=== PATIENT | female | born 1950 | race Caucasian/White ===

== ENCOUNTER 2020-11-10 15:17 | Emergency (ER) | payer OTHER ==
[~2020-11-10] VITALS: Ht 162.6 cm; Wt 90.0 kg
[2020-11-10] MEDS ORDERED: IBUPROFEN 600MG TABLET PO ONE (17:00)
[2020-11-10] MEDS ORDERED: IBUP-2028 MT (17:44)
[2020-11-10 17:50] VITALS: BP 161/80
== END 2020-11-10 18:02 | disposition home or self-care (01) ==
LOC: ER 15:17
DX: S20.214A Contusion of middle front wall of thorax, initial encounter (principal); I10 Essential (primary) hypertension; V49.9XXA Car occupant (driver) (passenger) injured in unspecified traffic accident, initial encounter; Y93.89 Activity, other specified; Y92.89 Other specified places as the place of occurrence of the external cause; Y99.8 Other external cause status
CPT/HCPCS: 71045; 93005; 99283